=== PATIENT | female | born 1970 | race African-American/Black ===

== ENCOUNTER 2017-02-16 14:33 | Observation (INO) | payer SELFPAY ==
[~2017-02-16] VITALS: Ht 162.6 cm; Wt 80.0 kg
[~2017-02-16 14:33] MED LIST: CYCL-36 PO; FIORCAP6 PO; HYDR-2768 PO; LISI-360 PO; METO25 PO; NAPR500 PO
[2017-02-16 14:37] VITALS: BP 197/93; PULSE 96; RESP 19; TEMP 98.2; O2SAT 98
--- NOTE | 2017-02-16 14:41 | PD ---
Physical Exam Date Seen by Provider: February 16, 2017 Time Seen by Provider: 14:38 Narrative 46 yo female here for evaluation right chest pain. Under her breast. Worsens with deep breaths. Woke up today. pain is sharp. 8/10. progressively worsening. No cough. No fevers. PCP sent her here. Not taking anything for the pain. Vitals sign stable. Patient awaiting bed placement. Data Data Last Documented VS Vital Signs Date Time Temp Pulse Resp B/P Pulse Ox O2 Delivery O2 Flow Rate FiO2 02/16/17 14:37 98.2 96 19 197/93 98 MDM Medical Record Reviewed: Yes Supervised Visit with ZELALEM: No Atif Ruelas February 16, 2017 14:41
[2017-02-16] MEDS ORDERED: LISI10TA3 PO (15:14)
[2017-02-16] MEDS ORDERED: METO25TA3 PO (15:14)
[2017-02-16] MEDS ORDERED: BUTA1CAP2 PO (15:14)
[2017-02-16] MEDS ORDERED: LEVO50TA4 PO (15:14)
[2017-02-16] MEDS ORDERED: HYDR25TA5 PO (15:14)
[2017-02-16] MEDS ORDERED: SODIUM CHLORIDE 0.9% FLUSH 10 ML FLUSH IVF PRN (15:15)
[2017-02-16] MEDS ORDERED: NITROGLYCERIN 0.4 MG SL 25 TABS/BTL SL ONE (15:15)
[2017-02-16] MEDS ORDERED: ASPIRIN 325 MG TAB PO ONE (15:15)
[2017-02-16 15:19] VITALS: RESP 20; O2SAT 99
[2017-02-16 15:39] LABS: AUTOMATED NEUTROPHIL # 5.2 TH/MM3 (1.8-7.7); BASOPHIL # 0.1 TH/MM3 (0-0.2); BASOPHIL % 1.2 % (0.0-2.0); EOSINOPHIL # 0.2 TH/MM3 (0-0.4); HEMATOCRIT 41.4 % (35.0-46.0); HEMO FLAGS DIFF FINAL; LYMPH % 30.6 % (9.0-44.0); LYMPHOCYTE # 2.8 TH/MM3 (1.0-4.8); MEAN CELL VOLUME 97.8 FL (80.0-100.0); MEAN CORPUSCULAR HEMOGLOBIN 31.6 PG (27.0-34.0); MEAN CORPUSCULAR HGB CONC 32.3 % (32.0-36.0); NEUT % 57.2 % (16.0-70.0); PLATELET COUNT 251 TH/MM3 (150-450); RED BLOOD COUNT 4.24 MIL/MM3 (4.00-5.30); WHITE BLOOD COUNT 9.1 TH/MM3 (4.0-11.0)
--- NOTE | 2017-02-16 15:41 | PD ---
HPI Chief Complaint: Chest Pain Time Seen by Provider: 15:08 Travel History International Travel<30 days: No Contact w/Intl Traveler<30days: No Traveled to known affect area: No History of Present Illness HPI 46 y/o female presents with chest pain in center. Went to primary that sent him here. Denies other complaints. denies taking aspirin. denies prior heart cath. Onset: Gradual Duration:couple days Location: central Quality:pressure Severity: moderate Context:referred by pcp Timing:Intermittent Risk Factors:smoking, FH, hypertension Modifying Factors:denies Associated sign and symptoms:None PFSH Past Medical History Arthritis: Yes Asthma: Yes Cardiovascular Problems: Yes (HTN) Coronary Artery Disease: Yes (RIGHT BREAST CA) Diabetes: No Diminished Hearing: No Genitourinary: Yes (renal calculi) Headaches: Yes Kidney Stones: Yes Immunizations Current: Yes Migraines: Yes Seizures: Yes (SEIZURES WITH UNCONTROLLED MIGRAINE PER PT REPORT) Thyroid Disease: Yes (HYPO - BORDERLINE, NOT ON MEDICATION YET) Tetanus Vaccination: > 5 Years Influenza Vaccination: No ?: Not LMP: 02/06/17 Menopausal: No : 1 Para: 1 Dilation and Curettage (D&C): Yes Tubal Ligation: Yes Past Surgical History Gynecologic Surgery: Yes (BREAST REDUCTION) Hysterectomy: No Oral Surgery: Yes (gum and 10 teeth extraction) Other Surgery: Yes (RIGHT BREAST LUMPECTOMY) Social History Alcohol Use: No Tobacco Use: Yes (1.5 ppd) Substance Use: No Allergies-Medications (Allergen,Severity, Reaction): Coded Allergies: Imitrex (Verified Allergy, Severe, HEART RACING, 02/16/17) Penicillin (Verified Allergy, Severe, RASH, 02/16/17) Toradol (Verified Allergy, Mild, ITCH, 02/16/17) Reported Meds & Prescriptions Reported Meds & Active Scripts Active Reported Levothyroxine (Levothyroxine Sodium) 50 Mcg Tab 50 Mcg PO DAILY Metoprolol Tartrate 25 Mg Tab 25 Mg PO BID Lisinopril 10 Mg Tab 10 Mg PO DAILY Hydrochlorothiazide 25 Mg Tab 25 Mg PO DAILY Fioricet-Codeine (Ykplumjvcz-Utynlanncznog-Jyykakfi-Codeine) 00-326-89-30 Mg Cap 1-2 Cap PO Q4H PRN Do not exceed 6 capsules/day. Review of Systems Except as stated in HPI: all other systems reviewed are Neg Physical Exam Narrative GENERAL: Well-nourished, well-developed patient. SKIN: Warm and dry. HEAD: Normocephalic and atraumatic. EYES: No injection or drainage. ENT: No nasal drainage noted. NECK: Supple, trachea midline. CARDIOVASCULAR: Regular rate and rhythm RESPIRATORY: Breath sounds equal bilaterally. No accessory muscle use. GASTROINTESTINAL: Abdomen soft, non-tender, nondistended. EXTREMITIES: No edema. NEUROLOGICAL: Awake and alert. moves all extremities. Normal speech. Data Data Last Documented VS Vital Signs Date Time Temp Pulse Resp B/P Pulse Ox O2 Delivery O2 Flow Rate FiO2 02/16/17 15:19 20 99 Room Air 02/16/17 15:07 98 02/16/17 14:37 98.2 197/93 Orders Electrocardiogram (02/16/17 15:13) Ckmb (Isoenzyme) Profile (02/16/17 15:13) Complete Blood Count With Diff (02/16/17 15:13) Comprehensive Metabolic Panel (02/16/17 15:13) D-Dimer (02/16/17 15:13) Magnesium (Mg) (02/16/17 15:13) Prothrombin Time / Inr (Pt) (02/16/17 15:13) Act Partial Throm Time (Ptt) (02/16/17 15:13) Troponin I (02/16/17 15:13) Chest, Single Ap (02/16/17 15:13) Ecg Monitoring (02/16/17 15:13) Bilateral Bp Monitoring (02/16/17 15:13) Iv Access Insert/Monitor (02/16/17 15:13) Oximetry (02/16/17 15:13) Aspirin (Aspirin) (02/16/17 15:15) Sodium Chloride 0.9% Flush (Ns Flush) (02/16/17 15:15) Nitroglycerin Sl (Nitrostat Sl) (02/16/17 15:15) Ct Pulmonary Angiogram (02/16/17 16:43) Morphine Inj (Morphine Inj) (02/16/17 17:15) Iohexol 350 Inj (Omnipaque 350 Inj) (02/16/17 17:18) Admit Order (Ed Use Only) (02/16/17 17:38) Labs Laboratory Tests Test 02/16/17 15:15 White Blood Count 9.1 TH/MM3 Red Blood Count 4.24 MIL/MM3 Hemoglobin 13.4 GM/DL Hematocrit 41.4 % Mean Corpuscular Volume 97.8 FL Mean Corpuscular Hemoglobin 31.6 PG Mean Corpuscular Hemoglobin 32.3 % Concent Red Cell Distribution Width 13.0 % Platelet Count 251 TH/MM3 Mean Platelet Volume 8.5 FL Neutrophils (%) (Auto) 57.2 % Lymphocytes (%) (Auto) 30.6 % Monocytes (%) (Auto) 9.0 % Eosinophils (%) (Auto) 2.0 % Basophils (%) (Auto) 1.2 % Neutrophils # (Auto) 5.2 TH/MM3 Lymphocytes # (Auto) 2.8 TH/MM3 Monocytes # (Auto) 0.8 TH/MM3 Eosinophils # (Auto) 0.2 TH/MM3 Basophils # (Auto) 0.1 TH/MM3 CBC Comment DIFF FINAL Differential Comment Prothrombin Time 11.6 SEC Prothromb Time International 1.0 RATIO Ratio Activated Partial 30.4 SEC Thromboplast Time D-Dimer Quantitative (PE/DVT) 0.91 MG/L FEU Sodium Level 138 MEQ/L Potassium Level 4.1 MEQ/L Chloride Level 106 MEQ/L Carbon Dioxide Level 26.4 MEQ/L Anion Gap 6 MEQ/L Blood Urea Nitrogen 9 MG/DL Creatinine 0.66 MG/DL Estimat Glomerular Filtration 116 ML/MIN Rate Random Glucose 80 MG/DL Calcium Level 9.5 MG/DL Magnesium Level 2.2 MG/DL Total Bilirubin 0.4 MG/DL Aspartate Amino Transf 18 U/L (AST/SGOT) Alanine Aminotransferase 24 U/L (ALT/SGPT) Alkaline Phosphatase 74 U/L Total Creatine Kinase 88 U/L Troponin I LESS THAN 0.02 NG/ML Total Protein 7.9 GM/DL Albumin 3.7 GM/DL MDM Medical Decision Making Medical Screen Exam Complete: Yes Emergency Medical Condition: Yes Medical Record Reviewed: Yes (pmh confirmed) Interpretation(s) EKG shows NSR, no ST elevation, mild ST depression laterally, and no arrhythmias. No significant T-wave inversions. CBC & BMP Diagram 02/16/17 15:15 Last [address] Angiography 02/16/17 0113 Signed Impressions: Service Date/Time: Thursday, February 16, 2017 17:15 - CONCLUSION: 1. No evidence of pulmonary embolism 2. No acute pulmonary infiltrates 3. Mild bibasilar atelectasis. Diaz Rojas MD Chest X-Ray 02/16/17 1513 Signed Impressions: Service Date/Time: Thursday, February 16, 2017 15:26 - CONCLUSION: 1. Mild right lower lung infiltrate. 2. Otherwise unremarkable and stable examination. Diaz Rojas MD Differential Diagnosis mi, gasritis, pe, musculoskeletal..... Narrative Course will check labs, cxr, ekg and reeval after aspirin and nitro ed workup no acute, agrees to [facility] observation Diagnosis Primary Impression: Chest pain Qualified Code: R07.9 - Chest pain, unspecified type Admitting Information Admitting Physician Requests: Observation Wanda Paul MD February 16, 2017 15:41
[2017-02-16 15:57] LABS: APTT (PATIENT) 30.4 SEC (24.3-30.1); PROTHROMBIN TIME - PATIENT 11.6 SEC (9.8-11.6)
[2017-02-16 16:21] LABS: ANION GAP 6 MEQ/L (5-15); AST (GOT) 18 U/L (15-37); BICARBONATE 26.4 MEQ/L (21.0-32.0); BLOOD UREA NITROGEN 9 MG/DL (7-18); CHLORIDE 106 MEQ/L (98-107); GLOMERULAR FILTRATION RATE 116 ML/MIN (>89); MAGNESIUM 2.2 MG/DL (1.5-2.5); POTASSIUM 4.1 MEQ/L (3.5-5.1); SODIUM (NA) 138 MEQ/L (136-145)
[2017-02-16 16:22] LABS: ALT (GPT) 24 U/L (10-53)
--- NOTE | 2017-02-16 16:24 | RADRPT ---
EXAM DATE/TIME: 02/16/2017 15:26 [facility] COMPARISON: CHEST SINGLE AP, November 25, 2009, 20:38. INDICATIONS : Chest pain since this morning, pain is more severe on inspiration MEDICAL HISTORY : None. SURGICAL HISTORY : None. ENCOUNTER: Initial ACUITY: 1 day PAIN SCORE: 10/10 LOCATION: Bilateral chest FINDINGS: There is a mild infiltrate in the right lung base. This could represent atelectasis. Otherwise, the l ungs are clear. There are no effusions or pulmonary edema. The heart size is within normal limits. Th e bony structures are grossly intact. No other significant changes are seen compared to the prior exa m. CONCLUSION: 1. Mild right lower lung infiltrate. 2. Otherwise unremarkable and stable examination. Diaz Rojas MD on February 16, 2017 at 16:22 Board Certified Radiologist. This report was verified electronically.
[2017-02-16 16:26] LABS: ALKALINE PHOSPHATASE 74 U/L (45-117); TOTAL BILIRUBIN ADULT 0.4 MG/DL (0.2-1.0)
[2017-02-16 16:37] LABS: CREATINE KINASE 88 U/L (26-192)
[2017-02-16] MEDS ORDERED: MORPHINE SULFATE 4 MG/ML INJ IV PUSH ONE (17:15)
[2017-02-16] MEDS ORDERED: IOHEXOL 350 MG/ML 10 ML VIAL (for RAD DIAG) IV ONE (17:18)
--- NOTE | 2017-02-16 17:33 | RADRPT ---
EXAM DATE/TIME: 02/16/2017 17:15 [facility] COMPARISON: No previous studies available for comparison. INDICATIONS : Pain under right breast and radiates to back. IV CONTRAST: 80 cc Omnipaque 350 (iohexol) IV RADIATION DOSE: 23.19 CTDIvol (mGy) MEDICAL HISTORY : Renal calculi. Seizures. Hypertension.Right breast cancer. SURGICAL HISTORY : Tubal ligation. Breast reduction. ENCOUNTER: Initial ACUITY: 1 day PAIN SCALE: 5/10 LOCATION: Right chest TECHNIQUE: Volumetric scanning of the chest was performed using a pulmonary embolism protocol MIP images were re constructed. Using automated exposure control and adjustment of the mA and/or kV according to patien t size, radiation dose was kept as low as reasonably achievable to obtain optimal diagnostic quality images. FINDINGS: PULMONARY ARTERIES: No filling defects are seen in the pulmonary arteries through the segmental level. LUNGS: There is no consolidation or pneumothorax . No concerning pulmonary nodule is visualized. Mild atele ctasis in both lung bases. PLEURAE: There is no pleural thickening or pleural effusion. MEDIASTINUM: There is good visualization of the great vessels of the middle mediastinum. No evidence of mediastin al or hilar adenopathy/mass. MUSCULOSKELETAL: Within normal limits for patient age. MISCELLANEOUS: The visualized upper abdominal organs demonstrate no acute abnormality. CONCLUSION: 1. No evidence of pulmonary embolism 2. No acute pulmonary infiltrates 3. Mild bibasilar atelectasis. Diaz Rojas MD on February 16, 2017 at 17:28 Board Certified Radiologist. This report was verified electronically.
[2017-02-16] MEDS ORDERED: ONDANSETRON HCL 4 MG/2 ML VIAL IV PRN (19:15)
[2017-02-16] MEDS ORDERED: NITROGLYCERIN 0.4 MG SL 25 TABS/BTL SL PRN (19:15)
[2017-02-16] MEDS ORDERED: ACETAMINOPHEN 500 MG CPLT PO PRN (19:15)
[2017-02-16] MEDS ORDERED: SODIUM CHLORIDE 0.9% FLUSH 10 ML FLUSH IV FLUSH PRN (19:15)
[2017-02-16 19:25] VITALS: BP 193/85; PULSE 89; RESP 16; O2SAT 99
[2017-02-16 20:16] LABS: CREATINE KINASE 63 U/L (26-192)
[2017-02-16 20:39] VITALS: BP 181/89; PULSE 77; RESP 18; TEMP 98.5; O2SAT 99
[2017-02-16] MEDS ORDERED: MORPHINE SULFATE 4 MG/ML INJ IV PRN (22:30)
[2017-02-16 23:08] LABS: CREATINE KINASE 64 U/L (26-192)
[2017-02-16 23:56] VITALS: PULSE 77
[2017-02-17] VITALS (8 sets, daily range): BP systolic 143–179; BP diastolic 73–93; PULSE 71–87; RESP 18–20; TEMP 97.7–98.5; O2SAT 95–100
[2017-02-17] MEDS ORDERED: LISINOPRIL 10 MG TAB PO SCH (09:00)
[2017-02-17] MEDS ORDERED: ASPIRIN 325 MG TAB PO SCH (09:00)
[2017-02-17] MEDS ORDERED: REGADENOSON INJ 0.4 MG/5 ML SYR ONE (11:10)
--- NOTE | 2017-02-17 11:13 | HHI.HP ---
HPI Primary Care Physician Unknown Chief Complaint Chest pain History of Present Illness This is a 46-year-old female that presents to the ED with a complaint of waking up with a right-sided chest discomfort. She points to under her right breast indicate where the discomfort was located. States it radiates to the right side of her back. She describes it as sharp and stabbing discomfort. The discomfort is still there. She had occasional nausea, diaphoresis, and shortness breath with the discomfort. She never headaches before. She went to her primary care physician who advised to go to the ED for further evaluation. She denies any personal history of cardiac disease but states she has siblings and her mother have coronary artery disease. She states his sister at age 53 of a myocardial infarction. Patient smokes cigarettes. She also has history of hypertension, hypothyroid, and migraines. Denies hyperlipidemia diabetes or CAD. Taking in a deep breath seems to worsen discomfort as well as certain movements seem to worsen the discomfort. Review of Systems General: Patient denies fevers, chills recent, and recent travel HEENT: Patient denies headache, sore throat, difficulty swallowing. Cardiovascular: Has the chest discomfort as mentioned above. Denies sensation of heart beating rapidly or irregularly. No syncope. Occasional diaphoresis. Respiratory: Occasional shortness of breath. Denies inspirational chest discomfort. Denies coughing wheezing or hemoptysis. GI: Occasional nausea. Patient denies vomiting, diarrhea, abdominal pain, bloody stools. Musculoskeletal: Patient denies joint pain or edema. Denies calf pain or edema. Neurovascular: Patient denies numbness, tingling, weakness in extremities. Denies headache. Endocrine: Denies polyuria and polydipsia. Hematologic: Denies easy bruising. Skin: Denies rash or itching. Past Family Social History Allergies: Coded Allergies: Imitrex (Verified Allergy, Severe, HEART RACING, 02/16/17) Penicillin (Verified Allergy, Severe, RASH, 02/16/17) Toradol (Verified Allergy, Mild, ITCH, 02/16/17) Past Medical History Hypertension, hypothyroidism, migraines, and tobacco abuse. Denies hyperlipidemia, diabetes, and CAD. Past Surgical History Right breast lumpectomy and breast reduction. Dental extractions. Reported Medications Reported Meds & Active Scripts Active Reported Levothyroxine (Levothyroxine Sodium) 50 Mcg Tab 50 Mcg PO DAILY Metoprolol Tartrate 25 Mg Tab 25 Mg PO BID Lisinopril 10 Mg Tab 10 Mg PO DAILY Hydrochlorothiazide 25 Mg Tab 25 Mg PO DAILY Fioricet-Codeine (Rkhuepteiq-Vlliqrxxywykt-Iibvaljc-Codeine) 91-283-42-30 Mg Cap 1-2 Cap PO Q4H PRN Do not exceed 6 capsules/day. Active Ordered Medications Current Medications Medications (Trade) Dose Ordered Sig/Freddy Route Start Time Stop Time Status Last Admin (NS Flush) 2 ml UNSCH PRN IV FLUSH 02/16/17 19:15 02/17/17 08:40 (Tylenol) 500 mg Q4H PRN PO 02/16/17 19:15 02/17/17 06:19 (Zofran Inj) 4 mg Q6H PRN IV 02/16/17 19:15 (Nitrostat Sl) 0.4 mg Q5M PRN SL 02/16/17 19:15 (Aspirin) 325 mg DAILY PO 02/17/17 09:00 02/17/17 08:39 (Morphine Inj) 4 mg Q6H PRN IV 02/16/17 22:30 02/16/17 22:47 (Prinivil) 10 mg DAILY PO 02/17/17 09:00 02/17/17 08:38 Family History Family history of CAD. She states a sister at age 53 of a myocardial infarction. Her mother also has CAD. Social History Patient smokes about 1-1/2 packs of cigarettes daily for about 25-30 years. Denies alcohol or illicit drugs. Physical Exam Vital Signs Vital Signs Date Time Temp Pulse Resp B/P Pulse Ox O2 Delivery O2 Flow Rate FiO2 02/17/17 09:25 71 02/17/17 08:19 98.1 78 20 179/93 100 02/17/17 07:47 99 Nasal Cannula 2.00 02/17/17 04:47 98.5 87 18 143/82 95 02/17/17 04:45 78 02/17/17 00:59 98.4 80 18 146/73 97 02/17/17 00:12 99 02/16/17 23:56 77 02/16/17 23:01 18 02/16/17 20:39 98.5 77 18 181/89 99 02/16/17 19:25 89 16 193/85 99 Room Air 02/16/17 15:19 20 99 Room Air 02/16/17 15:07 98 20 99 Room Air 02/16/17 14:37 98.2 96 19 197/93 98 Physical Exam GENERAL: This is a well-nourished, well-developed patient, in no apparent distress. Patient speaks in clear complete sentences. Patient is pleasant. HEENT: Head is atraumatic and normocephalic. Neck is supple without lymphadenopathy and trachea is midline. No JVD or carotid bruits. CARDIOVASCULAR: Regular rate and rhythm without murmurs, gallops, or rubs. RESPIRATORY: Clear to auscultation. Breath sounds equal bilaterally. No wheezes , rales, or rhonchi. Chest wall is tender. There is an area in her right back medial of her scapula it also is tender. No use of accessory muscles. GASTROINTESTINAL: Abdomen is nontender, nondistended. Abdomen soft. No obvious pulsatile mass or bruit. No CVA tenderness. Strong femoral pulses bilaterally. Normal bowel sounds in all quadrants. MUSCULOSKELETAL: Patient is moving upper and lower extremities freely. No calf tenderness or edema, no Homans sign. Strong pulses in upper and lower extremities. NEUROLOGICAL: Patient is alert and oriented. Cranial nerves 2-12 are grossly intact. No focal deficits and speech is clear. SKIN: No rash and turgor is normal. Laboratory Laboratory Tests Test 02/16/17 02/16/17 02/16/17 15:15 19:15 21:30 White Blood Count 9.1 Red Blood Count 4.24 Hemoglobin 13.4 Hematocrit 41.4 Mean Corpuscular Volume 97.8 Mean Corpuscular Hemoglobin 31.6 Mean Corpuscular Hemoglobin 32.3 Concent Red Cell Distribution Width 13.0 Platelet Count 251 Mean Platelet Volume 8.5 Neutrophils (%) (Auto) 57.2 Lymphocytes (%) (Auto) 30.6 Monocytes (%) (Auto) 9.0 Eosinophils (%) (Auto) 2.0 Basophils (%) (Auto) 1.2 Neutrophils # (Auto) 5.2 Lymphocytes # (Auto) 2.8 Monocytes # (Auto) 0.8 Eosinophils # (Auto) 0.2 Basophils # (Auto) 0.1 CBC Comment DIFF FINAL Differential Comment Prothrombin Time 11.6 Prothromb Time International 1.0 Ratio Activated Partial 30.4 Thromboplast Time D-Dimer Quantitative (PE/DVT) 0.91 Sodium Level 138 Potassium Level 4.1 Chloride Level 106 Carbon Dioxide Level 26.4 Anion Gap 6 Blood Urea Nitrogen 9 Creatinine 0.66 Estimat Glomerular Filtration 116 Rate Random Glucose 80 Calcium Level 9.5 Magnesium Level 2.2 Total Bilirubin 0.4 Aspartate Amino Transf 18 (AST/SGOT) Alanine Aminotransferase 24 (ALT/SGPT) Alkaline Phosphatase 74 Total Creatine Kinase 88 63 64 Troponin I LESS THAN 0.02 LESS THAN 0.02 LESS THAN 0.02 Total Protein 7.9 Albumin 3.7 Result Diagram: 02/16/17 1515 02/16/17 1515 Imaging Last [address] Angiography 02/16/17 1643 Signed Impressions: Service Date/Time: Thursday, February 16, 2017 17:15 - CONCLUSION: 1. No evidence of pulmonary embolism 2. No acute pulmonary infiltrates 3. Mild bibasilar atelectasis. Diaz Rojas MD Chest X-Ray 02/16/17 1513 Signed Impressions: Service Date/Time: Thursday, February 16, 2017 15:26 - CONCLUSION: 1. Mild right lower lung infiltrate. 2. Otherwise unremarkable and stable examination. Diaz Rojas MD Course EKGs have sinus rhythm without significant ST segment depressions or elevations. Assessment and Plan Assessment and Plan * Atypical chest pain: Patient has had serial cardiac enzymes and EKGs for ruling out purposes and has been seen by Dr. Johann Plascencia of cardiology and the chest pain center. She has multiple risk factors including a sister passing away at age 53 of a myocardial infarction. Subsequent patient will have a Lexiscan stress test. She will be discharged home if her stress test is nonischemic. * Hypothyroidism: Continue current medication. * Tobacco abuse: Patient has been counseled on the importance of smoking cessation. Patient is stable at this time. She is agreeable to this plan. Fito Boyer February 17, 2017 11:13
[2017-02-17] MEDS ORDERED: AMINOPHYLLINE INJ 250 MG/10 ML VIAL ONE (11:37)
--- NOTE | 2017-02-17 12:23 | RADRPT ---
EXAM DATE/TIME: 02/17/2017 10:20 [facility] COMPARISON: No previous studies available for comparison. INDICATIONS : Left chest pain. Angina. DOSE: 27.4 mCi Tc99m Myoview at stress. 8.6 mCi Tc99m Myoview at rest. 0.4 mg Lexiscan STRESS SYMPTOMS: Dyspnea, headache, and stomach pain. MEDICATIONS: 1.) 100 mg Aminophylline IV EJECTION FRACTION: 63% MEDICAL HISTORY : Hypertension. Carcinoma, breast. Smoker. SURGICAL HISTORY : Tubal ligation. ENCOUNTER: Initial ACUITY: 1 day PAIN SCALE: 8/10 LOCATION: Left chest TECHNIQUE: The patient underwent pharmacologic stress with infusion of prescribed dose. Continuous ECG tracing was monitored during stress. Gated SPECT imaging was performed after stress and conventional SPECT i maging was performed at rest. The examination was performed on a SPECT/CT scanner, both attenuation and non-corrected datasets were reviewed. FINDINGS: DISTRIBUTION: The maximum perfused segment at stress is in the lateral wall followed by the septum. Moderate gut activity does obscure the inferior wall. There is minimal redistribution in the high anterior wall of borderline significance. GATED STUDY: There is intact wall motion and thickening without hypokinetic or dyskinetic segments. CONCLUSION: Minimal redistribution high anterior wall borderline significance. There is no wall motion abnormali ty RISK CATEGORY: Low (<1% Annual Mortality Rate) Justyn Adams MD FACR on February 17, 2017 at 12:19 Board Certified Radiologist. This report was verified electronically.
--- NOTE | 2017-02-17 13:17 | HHI.DCPOC ---
Discharge Care Plan Diagnosis: (1) Chest pain (2) Hypertension (3) Tobacco abuse Goals to Promote Your Health * To prevent worsening of your condition and complications * To maintain your health at the optimal level Directions to Meet Your Goals Take your medications as prescribed Follow your dietary instruction Follow activity as directed Keep your appointments as scheduled Take your immunizations and boosters as scheduled If your symptoms worsen call your PCP, if no PCP go to Urgent Care Center or Emergency Room Smoking is Dangerous to Your Health. Avoid second hand smoke Call the 24-hour hour crisis hotline for domestic abuse at Fito Boyer February 17, 2017 13:17
--- NOTE | 2017-02-17 13:48 | EKG ---
Date Performed: 02/16/2017 Time Performed: 21:50:22 PTAGE: 46 years EKG: Sinus rhythm NORMAL ECG PREVIOUS TRACING : 02/16/2017 21.50 Since previous tracing, no significant change noted DOCTOR: Johann Plascencia Interpretating Date/Time 02/17/2017 13:47:34
--- NOTE | 2017-02-17 13:49 | EKG ---
Date Performed: 02/16/2017 Time Performed: 19:14:50 PTAGE: 46 years EKG: Sinus rhythm NORMAL ECG PREVIOUS TRACING : 11/25/2009 19.30 Since previous tracing, no significant change noted DOCTOR: Johann Plascencia Interpretating Date/Time 02/18/2017 07:15:52
--- NOTE | 2017-02-17 13:51 | EKG ---
Date Performed: 02/16/2017 Time Performed: 15:00:00 PTAGE: 46 years EKG: SINUS BRADYCARDIA LEFT ATRIAL ENLARGEMENT ABNORMAL ECG NO PREVIOUS TRACING DOCTOR: Johann Plascencia Interpretating Date/Time 02/17/2017 13:50:14
--- NOTE | 2017-02-17 13:57 | TR ---
Date Performed: 02/17/2017 Time Performed: 11:03:37 DOCTOR: Johann Plascencia DRUG LIST: CLINICAL HISTORY: REASON FOR TEST: REASON FOR ENDING: OBSERVATION: CONCLUSION: Lexiscan stress test was performed under standard four minute protocol. Radionuclid e was injected one minute prior to ending the test. No electrocardiographic abormalities were present to suggest ischemia. Nuclear imaging and interpretation are pending. COMMENTS:
== END 2017-02-17 14:15 ==
LOC: NEPC 14:33 → NEDA 17:39 → NEPGCP 19:36
PROVIDERS: ADMIT Internal Medicine Interventional Cardiology; ATTEND Internal Medicine Interventional Cardiology
DX: R07.89 Other chest pain (principal); I10 Essential (primary) hypertension; E03.9 Hypothyroidism, unspecified; G43.909 Migraine, unspecified, not intractable, without status migrainosus; M19.90 Unspecified osteoarthritis, unspecified site; J45.909 Unspecified asthma, uncomplicated; F17.210 Nicotine dependence, cigarettes, uncomplicated; Z88.0 Allergy status to penicillin; Z88.8 Allergy status to other drugs, medicaments and biological substances; Z85.3 Personal history of malignant neoplasm of breast; Z82.49 Family history of ischemic heart disease and other diseases of the circulatory system
CPT/HCPCS: 71010; 71275; 78452; 80053; 82550; 83735; 84484; 85025; 85379; 85610; 85730; 93005; 93017; 96374; 96375; 96376; 99285; A9502; G0378; J0280; J2270; J2785; Q9967